=== PATIENT | female | born 1995 | race Hispanic/Latino ===

== ENCOUNTER 2023-11-05 16:03 | Emergency (ER) | payer OTHER, SELFPAY ==
[2023-11-05 16:13] VITALS: BP 122/81; PULSE 68; RESP 18; TEMP 36.3; O2SAT 99; BMI 28.3
[2023-11-05 16:46] LABS: Urine Volume 10mL (spun)
[2023-11-05 16:47] LABS: Bacteria Urine Moderate (10-30); Culture Indicated Urine Specimen Cultured; RBC Urine 1-5/HPF (0-5/HPF); Squamous Epithelial Cell Urine 1-5 /HPF (0-5/HPF); WBC Urine 5-10/HPF (0-5/HPF)
--- NOTE | 2023-11-05 16:55 | ED.FEMALEGU ---
HPI - Female Genitourinary <Idalmis Monge PA-C - Last Filed: 11/05/23 16:59> General Chief complaint: Urogenital-Female Stated complaint: thinks UTI Time Seen by Provider: 11/05/23 16:44 Source: patient Mode of arrival: Ambulatory History of Present Illness HPI Narrative: 27-year-old female presents to the ED with 4 days of dysuria, frequent urination. Patient denies fever, chills, nausea, vomiting. Denies flank pain, abdominal pain. Related Data Previous Rx's Medication Instructions Recorded fluconazole 150 mg tablet 150 mg PO Q3D 2 doses #2 tabs 11/05/23 nitrofurantoin 100 mg PO Q12H 5 days #10 caps 11/05/23 monohydrate/macrocrystals 100 mg capsule (Macrobid) Allergies Allergy/AdvReac Type Severity Reaction Status Date / Time gabapentin Allergy Verified 11/05/23 16:13 Review of Systems <Idalmis Monge PA-C - Last Filed: 11/05/23 16:59> Constitutional Constitutional: Denies chills, Denies fatigue, Denies fever(s), Denies frequent falls, Denies lethargy and Denies weakness Eyes Eyes: Denies change in vision, Denies eye discharge, Denies irritation and Denies loss of vision ENT Ears, Nose, Mouth, and Throat: Denies change in voice, Denies dizziness, Denies neck pain, Denies sore throat and Denies throat swelling Cardiovascular Cardiovascular: Denies chest pain, Denies irregular heart rhythm, Denies lightheadedness, Denies palpitations, Denies dyspnea, Denies dyspnea on exertion and Denies orthopnea Respiratory Respiratory: Denies cough, Denies dyspnea, Denies dyspnea on exertion and Denies wheezing Gastrointestinal Gastrointestinal: Denies abdominal pain, Denies change in bowel habits, Denies diarrhea, Denies nausea and Denies vomiting Genitourinary Genitourinary: Reports dysuria and Reports urinary urgency Comments: Urinary frequency Musculoskeletal Musculoskeletal: Denies neck pain and Denies numbness Integumentary/Breasts Skin/Breast: Denies pruritus, Denies erythema, Denies rash and Denies wounds Neurologic Neurologic: Denies behavioral changes, Denies confusion, Denies dizziness, Denies frequent falls, Denies loss of vision, Denies numbness and Denies weakness Psychiatric Psychiatric: Denies anxiety, Denies behavioral changes, Denies confusion, Denies depression, Denies homicidal ideation and Denies suicidal ideation Endocrine Endocrine: Denies fatigue, Denies flushing and Denies palpitations Hematologic/Lymphatic Hematologic/Lymphatic: Denies easy bruising Allergic/Immunologic Allergic/Immunologic: Denies urticaria, Denies throat swelling and Denies wheezing Patient History <AMARLIIS Crockett Last Filed: 11/05/23 16:59> alcohol intake frequency: other Substance Use Type: does not use Exam <AMARILIS Crockett Last Filed: 11/05/23 16:59> Narrative Exam Narrative: Const General:?cooperative, healthy appearing and comfortable [facility] Head:?normal to inspection Ears:?hearing grossly normal bilaterally Nose:?external nose normal Face and sinus:?normal facial exam and sinuses nontender Mouth:?oral mucosae normal Throat:?posterior oropharynx normal Eyes General:?appearance normal, both eyes and all related structures Neck Neck:?normal visual inspection and no lymphadenopathy noted Resp Effort & Inspection:?normal respiratory effort Auscultation:?clear to auscultation bilaterally Cardio Rate:?regular rate Rhythm:?regular rhythm GI No CVA tenderness. Abdomen is soft, nondistended, nontender to palpation. Neuro General:?patient alert, patient awake and patient oriented x3 Initial Vital Signs Initial Vital Signs: Vital Signs Temperature 97.4 F L 11/05/23 16:13 Pulse Rate 68 11/05/23 16:13 Respiratory Rate 18 11/05/23 16:13 Blood Pressure 122/81 11/05/23 16:13 Pulse Oximetry 99 11/05/23 16:13 Oxygen Delivery Method Room Air 11/05/23 16:13 <Alyssia Washington DO - Last Filed: 11/09/23 23:56> Initial Vital Signs Initial Vital Signs: Vital Signs Temperature 97.4 F L 11/05/23 16:13 Pulse Rate 68 11/05/23 16:13 Respiratory Rate 18 11/05/23 16:13 Blood Pressure 122/81 11/05/23 16:13 Pulse Oximetry 99 11/05/23 16:13 Oxygen Delivery Method Room Air 11/05/23 16:13 Course <AMARILIS Crockett Last Filed: 11/05/23 16:59> Orders Ordered: Discontinued Medications Ondansetron HCl (Ondansetron 4 Mg/2 Ml Inj) 4 mg IV NOW PRN PRN Reason: Nausea And Vomiting Ondansetron HCl (Ondansetron 4 Mg Odt) 4 mg SL NOW PRN PRN Reason: Nausea And Vomiting Vital Signs Vital signs: Vital Signs - 8 hr 11/05/23 16:13 Temperature 97.4 F L Pulse Rate 68 Respiratory Rate 18 Blood Pressure 122/81 Pulse Oximetry 99 Oxygen Delivery Method Room Air <Alyssia Washington DO - Last Filed: 11/09/23 23:56> Orders Ordered: Discontinued Medications Ondansetron HCl (Ondansetron 4 Mg/2 Ml Inj) 4 mg IV NOW PRN PRN Reason: Nausea And Vomiting Ondansetron HCl (Ondansetron 4 Mg Odt) 4 mg SL NOW PRN PRN Reason: Nausea And Vomiting Vital Signs Vital signs: Vital Signs - 8 hr 11/05/23 16:13 Temperature 97.4 F L Pulse Rate 68 Respiratory Rate 18 Blood Pressure 122/81 Pulse Oximetry 99 Oxygen Delivery Method Room Air MDM - Female Genitourinary <Idalmis Monge PA-C - Last Filed: 11/05/23 16:59> Lab Data Labs: Lab Results 11/05/23 Range/Units 16:23 Urine RBC 1-5/hpf (0-5/HPF) Urine WBC 5-10/hpf H (0-5/HPF) Ur Squamous Epith Cells 1-5 /hpf (0-5/HPF) Urine Bacteria Moderate (10-30) H (None) Ur Culture Indicated? Specimen cultured Vol Urine Centrifuged 10ml (spun) Point of Care Testing Test Results Negative Urine Dip Bedside Urine Glucose Negative Bedside Urine Bilirubin - Negative Bedside Urine Ketone - Negative Urine Specific [place] 1.005 Bedside Urine Occult Blood +++ Bedside Urine pH 7.0 Bedside Urine Protein - Negative Bedside Urine Urobilinogen - Negative Bedside Urine Nitrite - Negative Bedside Urine Leukocytes ++ 125 Esterase MDM Narrative Medical decision making narrative: 27-year-old female presents to the ED with 4 days of dysuria, frequent urination. Urine is positive for leukocyte esterase, WBC. Prescribed antibiotics. Patient also states that she frequently gets yeast infections, will prescribe fluconazole for prophylaxis. Recommend good hydration. Recommend follow-up with PCP. ED return precautions discussed with patient. Patient verbalized understanding. Medical records reviewed: Yes <Alyssia Washington DO - Last Filed: 11/09/23 23:56> Lab Data Labs: Lab Results 11/05/23 Range/Units 16:23 Urine RBC 1-5/hpf (0-5/HPF) Urine WBC 5-10/hpf H (0-5/HPF) Ur Squamous Epith Cells 1-5 /hpf (0-5/HPF) Urine Bacteria Moderate (10-30) H (None) Ur Culture Indicated? Specimen cultured Vol Urine Centrifuged 10ml (spun) Point of Care Testing Test Results Negative Urine Dip Bedside Urine Glucose Negative Bedside Urine Bilirubin - Negative Bedside Urine Ketone - Negative Urine Specific [place] 1.005 Bedside Urine Occult Blood +++ Bedside Urine pH 7.0 Bedside Urine Protein - Negative Bedside Urine Urobilinogen - Negative Bedside Urine Nitrite - Negative Bedside Urine Leukocytes ++ 125 Esterase Discharge Plan Departure Patient Disposition: Home Clinical Impression: Urinary tract infection Qualifiers: Urinary tract infection type: acute cystitis Hematuria presence: without hematuria Qualified Code(s): N30.00 - Acute cystitis without hematuria Instructions: DI for Urinary Tract Infection (UTI) Activity Restrictions/Additional Instructions: You were evaluated in the ED today for pain with urination. Your urine shows that you have a urinary tract infection. You were being prescribed antibiotics. You were also being prescribed fluconazole for a yeast infection. Please drink plenty of water to stay well hydrated. Please follow-up with your PCP as soon as possible. Return to the ED if you have worsening symptoms, fever, chills, persistent vomiting. Prescriptions: New nitrofurantoin monohyd/m-cryst [Macrobid] 100 mg capsule 100 mg PO Q12H 5 Days Qty: 10 0RF Rx Instructions: must administer with a meal/food fluconazole 150 mg tablet 150 mg PO Q3D Qty: 2 0RF Rx Instructions: may repeat second dose 72 hrs after first dose if symptoms persist Referrals: Provider,Wendy YBARRA [Primary Care Provider] - Stand Alone Forms: Patient Portal/API ED Sign-out <Alyssia Washington DO - Last Filed: 11/09/23 23:56> Cosign ED Attending Cosignature Attestation: I was available for consultation.
== END 2023-11-05 16:59 | disposition home or self-care (01) ==
PROVIDERS: Emergency Medicine; Emergency Provider Student in an Organized Health Care Education/Training Program
DX: N30.00 Acute cystitis without hematuria (principal)
CPT/HCPCS: 81003; 81015; 81025; 87077; 87086; 87186; 99282

== ENCOUNTER 2024-04-06 12:27 | Emergency (ER) | payer OTHER, SELFPAY ==
[2024-04-06 13:04] VITALS: BP 117/63; PULSE 72; RESP 18; TEMP 36.2; O2SAT 99; BMI 28.3
[2024-04-06 13:58] LABS: Add Manual Diff / Slide Review NO; Basophils Absolute Auto 100 /uL (0-100); Basophils Percent Auto 0.8 % (0-2); Eosinophils Absolute Auto 400 /uL (0-450); Hematocrit 38.7 % (36-46); Hemoglobin 13.1 g/dL (12.0-16.0); Lymphocytes Absolute Auto 2500 /uL (1100-4500); Lymphocytes Percent Auto 27.2 % (25-40); Mean Corpuscular HGB Conc 33.8 % (30-36); Mean Corpuscular Hemoglobin 31.5 PG (26-34); Monocytes Absolute Auto 500 /uL (0-900); Neutrophils Absolute Auto 5700 /uL (1500-7000); Platelet Count 433 X10^3/uL (150-400); Red Blood Cell Count 4.16 X10^6/uL (4.0-5.2); Red Cell Distribution Width 13.7 % (11.6-14.8); White Blood Cell Count 9.2 X10^3/uL (4.5-11.0)
[2024-04-06 14:06] LABS: Alanine Aminotransferase 17 IU/L (<35); Albumin 4.8 g/dL (3.5-5.0); Albumin Globulin Ratio 1.5 (1.0-2.8); Alkaline Phosphatase 63 U/L (38-126); Aspartate Aminotransferase 24 IU/L (14-36); BUN Creatinine Ratio 17.6 (6-22); Bilirubin Total 0.4 mg/dL (0.2-1.3); Blood Urea Nitrogen 12 mg/dL (7-17); Calcium 9.2 mg/dL (8.4-10.2); Carbon Dioxide 30 mmol/L (22-32); Chloride 104 mmol/L (98-107); Estimated Glomerular Filt Rate > 60 mL/min (>60); Globulin 3.3 g/dL (1.7-4.1); Glucose 80 mg/dL (70-100); HEMOLYSIS < 15 (0-50); Lipase 76 U/L (23-300); Potassium 3.8 mmol/L (3.4-5.1); Sodium 140 mmol/L (137-145); Total Protein 8.1 g/dL (6.3-8.2)
--- NOTE | 2024-04-06 14:36 | ED_ITS ---
HPI - Abdominal Pain <Idalmis Monge PA-C - Last Filed: 04/06/24 16:23> General Chief Complaint: Abdominal Pain Stated Complaint: upper lft side quad px Time Seen by Provider: 04/06/24 13:11 Source: patient Mode of arrival: Ambulatory History of Present Illness HPI narrative: 28-year-old female presents to the ED with 2 days of epigastric and left upper quadrant pain. Patient states the pain started 2 days ago after eating, has persisted. Patient states that the pain is worsened with movement such as standing up straight or turning from one side to the other when lying down. No fever, chills, nausea, vomiting, chest pain, shortness of breath, diarrhea, lightheadedness, dizziness, dysuria, syncope. Patient does endorse a history of constipation. Related Data Previous Rx's Medication Instructions Recorded fluconazole 150 mg tablet 150 mg PO Q3D 2 doses #2 tabs 11/05/23 Allergies Allergy/AdvReac Type Severity Reaction Status Date / Time gabapentin Allergy Verified 11/05/23 16:13 Review of Systems <Idalmis Monge PA-C - Last Filed: 04/06/24 16:23> Constitutional Constitutional: Denies chills, Denies fatigue, Denies fever(s), Denies frequent falls, Denies lethargy and Denies weakness Eyes Eyes: Denies change in vision, Denies eye discharge, Denies irritation and Denies loss of vision ENT Ears, Nose, Mouth, and Throat: Denies change in voice, Denies dizziness, Denies neck pain, Denies sore throat and Denies throat swelling Cardiovascular Cardiovascular: Denies chest pain, Denies irregular heart rhythm, Denies lightheadedness, Denies palpitations, Denies dyspnea, Denies dyspnea on exertion and Denies orthopnea Respiratory Respiratory: Denies cough, Denies dyspnea, Denies dyspnea on exertion and Denies wheezing Gastrointestinal Gastrointestinal: Reports abdominal pain, Denies change in bowel habits, Reports constipation, Denies diarrhea, Denies nausea and Denies vomiting Musculoskeletal Musculoskeletal: Denies neck pain and Denies numbness Integumentary/Breasts Skin/Breast: Denies pruritus, Denies erythema, Denies rash and Denies wounds Neurologic Neurologic: Denies behavioral changes, Denies confusion, Denies dizziness, Denies frequent falls, Denies loss of vision, Denies numbness and Denies weakness Psychiatric Psychiatric: Denies anxiety, Denies behavioral changes, Denies confusion, Denies depression, Denies homicidal ideation and Denies suicidal ideation Endocrine Endocrine: Denies fatigue, Denies flushing and Denies palpitations Hematologic/Lymphatic Hematologic/Lymphatic: Denies easy bruising Allergic/Immunologic Allergic/Immunologic: Denies urticaria, Denies throat swelling and Denies wheezing Patient History <Idalmis Monge PA-C - Last Filed: 04/06/24 16:23> Social History Smoking Status: Never smoker Smoking Status: Never smoker alcohol intake frequency: other Exam <Idalmis Monge PA-C - Last Filed: 04/06/24 16:23> Narrative Exam Narrative: Const General:?cooperative, healthy appearing and comfortable [facility] Head:?normal to inspection Ears:?hearing grossly normal bilaterally Nose:?external nose normal Face and sinus:?normal facial exam and sinuses nontender Mouth:?oral mucosae normal Throat:?posterior oropharynx normal Eyes General:?appearance normal, both eyes and all related structures Neck Neck:?normal visual inspection and no lymphadenopathy noted Resp Effort & Inspection:?normal respiratory effort Auscultation:?clear to auscultation bilaterally Cardio Rate:?regular rate Rhythm:?regular rhythm GI Abdomen is soft, nondistended. Abdomen is tender to palpation in the epigastric region. Neuro General:?patient alert, patient awake and patient oriented x3 Initial Vital Signs Initial Vital Signs: Vital Signs Temperature 97.1 F L 04/06/24 13:04 Pulse Rate 72 04/06/24 13:04 Respiratory Rate 18 04/06/24 13:04 Blood Pressure 117/63 04/06/24 13:04 Pulse Oximetry 99 04/06/24 13:04 Oxygen Delivery Method Room Air 04/06/24 13:04 <Alyssia Washington DO - Last Filed: 04/06/24 19:31> Initial Vital Signs Initial Vital Signs: Vital Signs Temperature 97.1 F L 04/06/24 13:04 Pulse Rate 72 04/06/24 13:04 Respiratory Rate 18 04/06/24 13:04 Blood Pressure 117/63 04/06/24 13:04 Pulse Oximetry 99 04/06/24 13:04 Oxygen Delivery Method Room Air 04/06/24 13:04 Course <AMARILIS Crockett Last Filed: 04/06/24 16:23> Orders Ordered: ED Orders 04/06/24 13:30 Complete Blood Count AUTO DIFF Stat Comprehensive Metabolic Panel Stat Lipase Stat 04/06/24 14:48 CT abdomen pelvis w con Stat 04/06/24 15:04 Urine Microscopic Stat Discontinued Medications Ondansetron HCl (Ondansetron 4 Mg/2 Ml Inj) 4 mg IV NOW PRN PRN Reason: Nausea And Vomiting Ondansetron HCl (Ondansetron 4 Mg Odt) 4 mg PO NOW PRN PRN Reason: Nausea And Vomiting Vital Signs Vital signs: Vital Signs - 8 hr 04/06/24 13:04 04/06/24 16:26 Temperature 97.1 F L Pulse Rate 72 68 Respiratory Rate 18 17 Blood Pressure 117/63 125/64 Pulse Oximetry 99 99 Oxygen Delivery Method Room Air Room Air <Alyssia Washington DO - Last Filed: 04/06/24 19:31> Orders Ordered: ED Orders 04/06/24 13:30 Complete Blood Count AUTO DIFF Stat Comprehensive Metabolic Panel Stat Lipase Stat 04/06/24 14:48 CT abdomen pelvis w con Stat 04/06/24 15:04 Urine Microscopic Stat Discontinued Medications Ondansetron HCl (Ondansetron 4 Mg/2 Ml Inj) 4 mg IV NOW PRN PRN Reason: Nausea And Vomiting Ondansetron HCl (Ondansetron 4 Mg Odt) 4 mg PO NOW PRN PRN Reason: Nausea And Vomiting Vital Signs Vital signs: Vital Signs - 8 hr 04/06/24 13:04 04/06/24 16:26 Temperature 97.1 F L Pulse Rate 72 68 Respiratory Rate 18 17 Blood Pressure 117/63 125/64 Pulse Oximetry 99 99 Oxygen Delivery Method Room Air Room Air MDM - Abdominal Pain <AMARILIS Crockett Last Filed: 04/06/24 16:23> Lab Data 04/06/24 13:30 04/06/24 13:30 Labs: Lab Results 04/06/24 04/06/24 Range/Units 13:30 15:04 WBC 9.2 (4.5-11.0) X10^3/uL RBC 4.16 (4.0-5.2) X10^6/uL Hgb 13.1 (12.0-16.0) g/dL Hct 38.7 (36-46) % MCV 93.0 (80-100) fL MCH 31.5 (26-34) PG MCHC 33.8 (30-36) % RDW 13.7 (11.6-14.8) % Plt Count 433 H (150-400) X10^3/uL Neut % (Auto) 62.0 (50-75) % Lymph % (Auto) 27.2 (25-40) % [place] % (Auto) 6.0 (3-14) % Eos % (Auto) 4.0 (2-4) % Baso % (Auto) 0.8 (0-2) % Neut # (Auto) 5700 (9511-1538) /uL Lymph # (Auto) 2500 (9972-7657) /uL [place] # (Auto) 500 (0-900) /uL Eos # (Auto) 400 (0-450) /uL Baso # (Auto) 100 (0-100) /uL Sodium 140 (137-145) mmol/L Potassium 3.8 (3.4-5.1) mmol/L Chloride 104 (98-107) mmol/L Carbon Dioxide 30 (22-32) mmol/L BUN 12 (7-17) mg/dL Creatinine 0.68 (0.52-1.04) mg/dL Estimated GFR > 60 (>60) mL/min BUN/Creatinine Ratio 17.6 (6-22) Glucose 80 (70-100) mg/dL Calcium 9.2 (8.4-10.2) mg/dL Total Bilirubin 0.4 (0.2-1.3) mg/dL AST 24 (14-36) IU/L ALT 17 (<35) IU/L Alkaline Phosphatase 63 (38-126) U/L Total Protein 8.1 (6.3-8.2) g/dL Albumin 4.8 (3.5-5.0) g/dL Globulin 3.3 (1.7-4.1) g/dL Albumin/Globulin Ratio 1.5 (1.0-2.8) Lipase 76 (23-300) U/L Urine RBC 30-100/hpf H (0-5/HPF) Urine WBC 1-5/hpf (0-5/HPF) Ur Squamous Epith Cells 1-5 /hpf (0-5/HPF) Urine Bacteria Moderate (10-30) H (None) Ur Culture Indicated? Cult not indicated Vol Urine Centrifuged 10ml (spun) Point of care testing: Point of Care Testing Test Results Negative Urine Dip Bedside Urine Glucose Negative Bedside Urine Bilirubin - Negative Bedside Urine Ketone - Negative Urine Specific [place] 1.015 Bedside Urine Occult Blood +++ Bedside Urine pH 6.0 Bedside Urine Protein +/- 15 Bedside Urine Urobilinogen - Negative Bedside Urine Nitrite - Negative Bedside Urine Leukocytes +/- 15 Esterase MDM Narrative Medical decision making narrative: 28-year-old female presents to the ED with 2 days of epigastric and left upper quadrant pain. Concern for gastritis versus GERD versus Pepcid ulcer disease versus lipase versus other intra-abdominal pathology versus other. Will obtain labs, UA, CT abdomen pelvis. Will reassess. Labs, UA, CT scan without acute findings. Patient's symptoms most consistent with acid reflux/gastritis. Recommend Pepcid AC, MiraLax, good hydration, follow-up with PCP. ED return precautions were discussed with patient. Patient verbalized understanding. Medical records reviewed: Yes <Alyssia Washington, - Last Filed: 04/06/24 19:31> Lab Data Labs: Lab Results 04/06/24 04/06/24 Range/Units 13:30 15:04 WBC 9.2 (4.5-11.0) X10^3/uL RBC 4.16 (4.0-5.2) X10^6/uL Hgb 13.1 (12.0-16.0) g/dL Hct 38.7 (36-46) % MCV 93.0 (80-100) fL MCH 31.5 (26-34) PG MCHC 33.8 (30-36) % RDW 13.7 (11.6-14.8) % Plt Count 433 H (150-400) X10^3/uL Neut % (Auto) 62.0 (50-75) % Lymph % (Auto) 27.2 (25-40) % [place] % (Auto) 6.0 (3-14) % Eos % (Auto) 4.0 (2-4) % Baso % (Auto) 0.8 (0-2) % Neut # (Auto) 5700 (7630-9516) /uL Lymph # (Auto) 2500 (2855-0859) /uL [place] # (Auto) 500 (0-900) /uL Eos # (Auto) 400 (0-450) /uL Baso # (Auto) 100 (0-100) /uL Sodium 140 (137-145) mmol/L Potassium 3.8 (3.4-5.1) mmol/L Chloride 104 (98-107) mmol/L Carbon Dioxide 30 (22-32) mmol/L BUN 12 (7-17) mg/dL Creatinine 0.68 (0.52-1.04) mg/dL Estimated GFR > 60 (>60) mL/min BUN/Creatinine Ratio 17.6 (6-22) Glucose 80 (70-100) mg/dL Calcium 9.2 (8.4-10.2) mg/dL Total Bilirubin 0.4 (0.2-1.3) mg/dL AST 24 (14-36) IU/L ALT 17 (<35) IU/L Alkaline Phosphatase 63 (38-126) U/L Total Protein 8.1 (6.3-8.2) g/dL Albumin 4.8 (3.5-5.0) g/dL Globulin 3.3 (1.7-4.1) g/dL Albumin/Globulin Ratio 1.5 (1.0-2.8) Lipase 76 (23-300) U/L Urine RBC 30-100/hpf H (0-5/HPF) Urine WBC 1-5/hpf (0-5/HPF) Ur Squamous Epith Cells 1-5 /hpf (0-5/HPF) Urine Bacteria Moderate (10-30) H (None) Ur Culture Indicated? Cult not indicated Vol Urine Centrifuged 10ml (spun) Point of care testing: Point of Care Testing Test Results Negative Urine Dip Bedside Urine Glucose Negative Bedside Urine Bilirubin - Negative Bedside Urine Ketone - Negative Urine Specific [place] 1.015 Bedside Urine Occult Blood +++ Bedside Urine pH 6.0 Bedside Urine Protein +/- 15 Bedside Urine Urobilinogen - Negative Bedside Urine Nitrite - Negative Bedside Urine Leukocytes +/- 15 Esterase Discharge Plan Departure Patient Disposition: Home Clinical Impression: Abdominal pain Qualifiers: Abdominal location: epigastric Qualified Code(s): R10.13 - Epigastric pain Instructions: DI for Abdominal Pain-Adult Activity Restrictions/Additional Instructions: You were evaluated in the ED today for abdominal pain. Your labs, urine, CT scan were normal. You likely have some acid reflux/gastritis that is causing your symptoms. You may take Pepcid AC once before breakfast and once before dinner for the next 2 to 4 weeks. Please eat small meals, avoiding very spicy or oily foods. Please stay upright for 2-3 hours after eating a meal. You may take MiraLax nightly for constipation. It is important to drink 1.5 L of water daily as well as consuming sufficient amount of fiber. Please follow-up with your PCP as soon as possible. Return to the ED if you have worsening symptoms. Prescriptions: No Action fluconazole 150 mg tablet 150 mg PO Q3D Qty: 2 0RF Rx Instructions: may repeat second dose 72 hrs after first dose if symptoms persist Referrals: ProviderWendy [Primary Care Provider] - Stand Alone Forms: Patient Portal/API/Survey ED Sign-out <Alyssia Washington DO - Last Filed: 04/06/24 19:31> Cosign ED Attending Coseldaature Attestation: I was available for consultation.
--- NOTE | 2024-04-06 14:48 | DI.CT.S_ITS ---
PROCEDURE: CT ABDOMEN PELVIS W CON INDICATIONS: epigastric and LUQ pain TECHNIQUE: After the administration of intravenous contrast, axial sections acquired from the lung bases to the pubic symphysis. Coronal and sagittal reformats were performed. For radiation dose reduction, the following was used: automated exposure control, adjustment of mA and/or kV according to patient size. COMPARISON: None. FINDINGS: Image quality: Diagnostic. Lower Chest: No significant findings. ABDOMEN: Liver: No solid mass. Gallbladder: No radiopaque gallstones or wall thickening. Biliary ducts: No biliary dilation. Pancreas: No ductal dilation. Spleen: Size is within normal limits. Adrenal Glands: No adrenal nodules. Kidneys and Ureters: No hydronephrosis. No solid mass. No complex renal cystic lesion which requires follow up. lobulation of the kidneys. No nephrolithiasis. Stomach and Bowel: Normal colonic caliber, without significant wall thickening. Normal appendix. Moderate colonic stool load. No significant diverticular disease. Peritoneum: No abnormal intraperitoneal fluid. No free air. Ventral Wall: No significant ventral hernia. Abdominal Nodes: No retroperitoneal or mesenteric adenopathy by size criteria. Vessels: Aorta and inferior vena cava are normal in size. PELVIS: Pelvic Organs: Symmetric ovaries. Bladder: No bladder wall thickening, accounting for underdistention. Pelvic Nodes: No enlarged lymph nodes. Miscellaneous: No inguinal hernias are seen. Bones: No aggressive osseous abnormality. IMPRESSION: Moderate colonic stool load. Otherwise, no acute abnormality. Normal appendix, normal gallbladder, no nephrolithiasis or hydronephrosis, symmetric ovaries, no diverticulosis. Dictated by: Wali Lomeli M.D. on 04/06/2024 at 16:04 Approved by: Wali Lomeli M.D. on 04/06/2024 at 16:06
[2024-04-06 15:48] LABS: Bacteria Urine Moderate (10-30); RBC Urine 30-100/HPF (0-5/HPF); Squamous Epithelial Cell Urine 1-5 /HPF (0-5/HPF); Urine Volume 10mL (spun); WBC Urine 1-5/HPF (0-5/HPF)
[2024-04-06 15:49] LABS: Culture Indicated Urine Cult Not Indicated
[2024-04-06 16:26] VITALS: BP 125/64; PULSE 68; RESP 17; O2SAT 99
== END 2024-04-06 16:27 | disposition home or self-care (01) ==
PROVIDERS: Emergency Provider Student in an Organized Health Care Education/Training Program
DX: R10.13 Epigastric pain (principal); R10.12 Left upper quadrant pain; K59.00 Constipation, unspecified
CPT/HCPCS: 36415; 74177; 80053; 81003; 81015; 81025; 83690; 85025; 99283; 99284; Q9967

== ENCOUNTER → 2024-07-07 10:14 | Outpatient (CLI) | payer OTHER, SELFPAY | PROVIDERS: Visit Provider Nurse Practitioner Family | DX: N89.8 Other specified noninflammatory disorders of vagina (principal); R30.0 Dysuria | CPT/HCPCS: 87086; 87210 ==

== ENCOUNTER → 2025-01-04 10:15 | Outpatient (CLI) | payer OTHER, SELFPAY ==
[2025-01-04 12:11] LABS: Influenza A - CEPHEID Flu A NEGATIVE (NEGATIVE); Influenza B - CEPHEID Flu B NEGATIVE (NEGATIVE)
[2025-01-04 12:13] LABS: COVID-19 CEPHEID 4-PLEX PCR POSITIVE (Negative)
== END ==
PROVIDERS: Visit Provider Physician Assistant Medical
DX: R05.9 Cough, unspecified (principal)
CPT/HCPCS: 87637